=== PATIENT | male | born 1965 | race Caucasian/White ===

== ENCOUNTER 2018-06-29 19:42 | Emergency (ER) | payer OTHER ==
--- NOTE | 2018-06-29 20:36 | CPEKG ---
Test Reason : OPEN Blood Pressure : / mmHG Vent. Rate : 069 BPM Atrial Rate : 068 BPM P-R Int : 180 ms QRS Dur : 150 ms QT Int : 415 ms P-R-T Axes : 012 -39 043 degrees QTc Int : 445 ms Sinus rhythm Right bundle branch block Confirmed by Bud Mcdonnell ([id number]) on 06/29/2018 8:36:03 PM Referred By: Confirmed By:Bud Mcdonnell
--- NOTE | 2018-06-29 20:40 | EDPHY ---
HPI/HX/ROS/PE/MDM Narrative: CLINICAL IMPRESSION: Chest Tightness ASSESSMENT/PLAN: 53-year-old male presents to the emergency department with atraumatic, intermittent, short-lived substernal chest tightness and shortness of breath since this morning. Patient arrives without complaints of chest pain or dyspnea. He is visiting our area from [place], has been here for 1 month to be with his college-aged daughter who is currently admitted to the ICU with a reported fatal diagnosis following recent valvular heart surgery. Patient is visible upset, admits to significant stress, and endorses anxiety. His family convinced him to come to the ER tonight but patient feels his symptoms are related to anxiety and possibly a reaction to a cat that lives in the residence he is currently renting in [place]. He agreed to EKG and CXR tonight but declined any further diagnostic workup including labs. VSS, no hypoxia or respiratory distress, no recent URI symptoms, and his only reported cardiac hx is RBBB. EKG shows RBBB, reviewed with Dr. Mcdonnell. CXR with no acute cardiopulmonary findings. Patient is requesting valium to help him sleep and to treat his anxiety over his daughter's diagnosis. He was also given an albuterol inhaler which has used in the past for his known cat allergy. Long discussion with him regarding return precautions and patient verbalized understanding. Warning signs for return to ER also outlined in d/c instructions. Case discussed with Dr. Mcdonnell. DIFFERENTIAL DX: Differential diagnosis includes but not limited to myocardial ischemia, pulmonary embolus, chest wall pain, pleural inflammation, musculoskeletal chest wall pain, aortic aneurysm, and pulmonary infectious causes. ED PROCEDURES: See lab and/or imaging results below ED COURSE: 11:35 p.m.: EKG and patient history reviewed with Dr. Mcdonnell. Right bundle- branch block. No acute ST or T-wave changes. 8:55 p.m.: Preliminary review of chest x-ray shows mild cardiomegaly with no other acute cardiopulmonary findings. Final read pending 9:15 p.m.: EKG and chest x-ray results discussed with the patient. He continues to decline lab evaluation. He would like a Valium here before leaving. Take-home albuterol provided and Valium prescription provided. Patient is comfortable with this. I had a long discussion with him regarding warning signs for returning to ED or calling 911 and patient agrees to this. CHIEF COMPLAINT: Shortness of breath HPI: This is a 53-year-old male who presents to the emergency department tonight with complaints of intermittent substernal non-radiating chest tightness and shortness of breath that began earlier today. Patient is visiting our area from [place] to be with his college aged daughter who is currently in the ICU here with a fatal diagnosis following valvular heart surgery. Patient is admittedly very stressed over this, anxious, angry and upset. His family convinced him to come to the ER tonight but he states he believes his symptoms are due to stress and a CT that lives in the residence he is currently staying at. He does have a known cat allergy. He is requesting Valium and now albuterol inhaler. He has no prior cardiac disease or cardiac history aside from a known right bundle branch block. He states his primary care in [place] placed him on a"trial."Of cholesterol and high blood pressure medication last year but he stopped taking it after 2 weeks because he did not think he needed it. He reports that he does not have elevated cholesterol and has never been told he has high blood pressure. He otherwise reports no medical history. He did suffer from anxiety when he was younger and believes Valium would help him. No recent URI symptoms, fever, chills or flu. No ill contacts. No leg swelling or asymmetric calf pain. His symptoms began when he was bending down to sit in a chair, lasted a couple minuted and have been intermittent throughout the day. PAST MEDICAL HISTORY: Known right bundle branch block See triage summary and nurse notes for addition applicable history Pertinent Past Surgical History: Nerve stimulator in the back Family History: No cardiac family history reported Social History: Nonsmoker, lives in [place] REVIEW OF SYSTEMS: A full 10 point review of systems was negative except for those mentioned in HPI. PHYSICAL EXAM: General Appearance: Alert, oriented, appropriate, overweight, flat affect cooperative, NAD, well hydrated, non-toxic appearing, VSS, no hypoxia. HEENT: Oropharynx clear is no erythema or exudates, no tonsillar hypertrophy or asymmetry. Dentition without abnormality. Neck: Supple, nontender, no lymphadenopathy, no midline pain, FROM, no meningismus. Respiratory: There are no retractions, lungs are clear to auscultation. Cardiac: Regular rate and rhythm, no murmurs or gallops. Symmetric pulses bilateral upper extremity Gastrointestinal: Abdomen is soft, nontender, bowel sounds normal, no masses/ hernia, no rigidity, guarding or focal peritoneal findings. Skin: Warm, dry, no rashes, no nodules on palpation. No asymmetric calf swelling or erythema MEDICAL DECISION MAKING: Patient was seen independently. Secondary supervising physician at time of evaluation was: Dr. Mcdonnell. Diagnosis: Chest tightness, shortness of breath. New, requires workup Summary: See Assessment and Plan for summary of ED visit Clinical lab tests: Patient refused. Independent visualization of images, tracing, or specimens: Yes. Decision to obtain medical records or history from someone other than the patient: None Review / Summarize previous medical records: None available Discussed patient with another provider: Dr. Mcdonnell Patient Progress: Stable. - Data Points Imaging Results: Imaging Impressions Chest X-Ray 06/29/18 20:26 Impression: Excellent inspiration. Otherwise negative. Medications Given: Discontinued Medications Albuterol Sulfate (Proventil Inh Prepack) 1 mdi TAKEHOME EDNOW ONE Stop: 06/29/18 21:06 Last Admin: 06/29/18 21:26 Dose: 1 mdi Diazepam (Valium) 5 mg PO EDNOW ONE Stop: 06/29/18 21:08 Last Admin: 06/29/18 21:25 Dose: 5 mg General Time Seen by Provider: 06/29/18 19:56 Initial Vital Signs: Initial Vital Signs Temperature (C) 36.7 C 06/29/18 19:47 Heart Rate 74 06/29/18 19:47 Respiratory Rate 18 06/29/18 19:47 Blood Pressure 155/86 H 12/26/18 19:47 O2 Sat (%) 94 06/29/18 19:47 O2 Delivery Mode Room Air Allergies/Adverse Reactions: gluten Allergy (Verified 06/29/18 19:53) lactose Allergy (Verified 06/29/18 19:53) Home Medications: Medication Instructions Recorded Diazepam [Valium] 5 mg PO Q8PRN PRN #10 tab 06/29/18 Departure - Departure Disposition: Home, Routine, Self-Care Clinical Impression: Shortness of breath Condition: Good Instructions: Albuterol (By breathing), Shortness of Breath (ED) Additional Instructions: DISCHARGE INSTRUCTIONS FROM YOUR DOCTOR Thank you for visiting our emergency department today. Please keep in mind that discharge from the emergency department does not mean that there is nothing wrong - it simply means that we have not identified an emergency condition that requires further evaluation or treatment in the hospital. You should always plan to follow up with primary care for re-evaluation of your condition in the next 2-3 days. If you have been referred to a specialist, please call as soon as possible (today or tomorrow) to schedule your follow up appointment at the appropriate time. YOUR EKG SHOWED CHANGES CONSISTENT WITH A RIGHT BUNDLE BRANCH BLOCK BUT OTHERWISE NO ARRHYTHMIA OR ABNORMAL CARDIAC ACTIVITY. CHEST X-RAY SHOWED NO ACUTE CARDIOPULMONARY DISEASE. YOU HAVE DECLINED ADDITIONAL LAB WORK AND EVALUATION. I GAVE YOU A PRESCRIPTION FOR ALBUTEROL AND A STEROID INHALER TO USE SHOULD YOU EXPERIENCE SHORTNESS OF BREATH RELATED TO THE CAT IN YOUR ENVIRONMENT. ALBUTEROL IS A RESCUE INHALER AND IS INTENDED TO RELIEVE SYMPTOMS IMMEDIATELY HOWEVER CAN CAUSE "JITTERS" AND A RACING HEART SENSATION FOR 15 MINUTES AFTER USE. A PRESCRIPTION FOR VALIUM WAS ALSO GIVEN. PLEASE MONITOR SYMPTOMS CLOSELY AT HOME. PLEASE RETURN TO THE ER IMMEDIATELY FOR WORSENING SHORTNESS OF BREATH, CHEST PAIN, DIZZINESS OR LIGHTHEADEDNESS, FAINTING EPISODES , ARM/JAW/NECK PAIN OR ANY OTHER CONCERNS. People present with illnesses and injuries in different ways, and it is always possible that we have missed something. You may always return for re-evaluation if symptoms worsen or if they are not improving or if you develop new/different symptoms. Again, thank you for choosing our emergency department. We hope that you feel better. Referrals: NONE *PRIMARY CARE P,. [Primary Care Provider] - As per Instructions [facility] [Clinic] - As per Instructions Prescriptions: Diazepam [Valium] 5 mg PO Q8PRN PRN #10 tab PRN Reason: Anxiety
[2018-06-29] MEDS ORDERED: ALBUTEROL INH PREPACK MDI TAKEHOME ONE (21:05)
[2018-06-29] MEDS ORDERED: DIAZEPAM 5 MG TAB PO ONE (21:07)
[2018-06-29 21:34] VITALS: BP 147/91
== END 2018-06-29 21:37 | disposition home or self-care (01) ==
DX: R06.02 Shortness of breath (principal); R07.89 Other chest pain